=== PATIENT | female | born 1995 | race Caucasian/White ===

== ENCOUNTER 2016-11-15 16:38 | Emergency (ER) | payer OTHER ==
[~2016-11-15] VITALS: Ht 172.7 cm; Wt 66.7 kg
[~2016-11-15 16:38] MED LIST: AUGMENTIN 875 M1 TAB PO; BACTRIM DS 8001 TAB PO; BACTRIM DS TAB1 EACH PO; BENADRYL ALLERG25 M2 PO; CIPRO 500MG TA500 MG PO; DIFLUCAN150 MG PO; IBU-6600 MG PO; IBU600 MG PO; IBUPROFEN800 M1 PO; KETOROLAC TROME10 M1 PO; MEDROL4 M2 PO; METHYLPHENIDATE54 M1 PO; MICROGESTIN FE1 TAB PO; PERCOCET 325 MG1 TA2 PO; PREDNISONE20 M1 PO; PYRIDIUM100 MG PO; TYLENOL WITH C1 EACH PO; VICODIN5-300 PO; ZOFRAN ODT4 M1 PO; ZOFRAN ODT4 MG PO; ZOFRAN4 M2 PO
--- NOTE | 2016-11-15 17:56 | ED GI/GU/ABDOMINAL COMPLAINT ---
History of Present Illness General Chief Complaint: Abdominal Pain/Flank Pain Stated Complaint: ABD AND BACK PAIN Source: patient Exam Limitations: no limitations Vital Signs & Intake/Output Vital Signs & Intake/Output Vital Signs Date Time Temp Pulse Resp B/P Pulse O2 O2 Flow FiO2 Ox Delivery Rate 11/16 2011 98.1 66 16 115/61 99 Room Air Room Air 11/15 1834 77 18 102/57 98 Room Air 11/15 1652 97.8 98 18 136/94 99 Room Air Allergies Coded Allergies: NO KNOWN ALLERGIES (05/05/15) Reconcile Medications Metronidazole (Flagyl) 500 MG TABLET 1 TAB PO BID vaginal infection Tramadol HCl 50 MG TABLET 1-2 TAB PO Q6P PRN pain Triage Note: PT COMPLAINS OF FLANK PAIN AND ABD PAIN FOR 10 DAYS. DID URINE DIP STICK THAT WAS NEGATIVE BUT CULTURE CAME BACK GROUP B STREP BUT NOT HIGH ENOUGH TO TREAT. Triage Nurses Notes Reviewed? yes ? n Is pt currently ? No Onset: Abrupt Timing: recent history Quality/Severity: moderate, sharpness, severe Location: low back pain, low abd pain Radiation: no radiation Activities at Onset: none No Modifying Factors: none HPI: 21-year-old female comes into emergency room with complaints of lower abdominal pain has been going on for the past 2 weeks. She also reports some associated low back pain and vaginal discharge. She's reports some increased frequency with urination and some itching. She had a urine culture which grew out some group A strep. Denies any vomiting. Denies any fever or chills. Denies any changes in bowel movement. Nothing seems to make the symptoms better or worse. (GIGI ANDINO) Past History Travel History Traveled to [place] past 21 day No Medical History Any Pertinent Medical History? 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 No (GIGI ANDINO) Review of Systems Review of Systems Constitutional: Reports: no symptoms. EENTM: Reports: no symptoms. Respiratory: Reports: no symptoms. Cardiovascular: Reports: no symptoms. GI: Reports: see HPI. Genitourinary: Reports: see HPI. Musculoskeletal: Reports: see HPI. Skin: Reports: no symptoms. Neurological/Psychological: Reports: no symptoms. Hematologic/Endocrine: Reports: no symptoms. Immunologic/Allergic: Reports: no symptoms. All Other Systems: Reviewed and Negative (GIGI ANDINO) Physical Exam Physical Exam General Appearance: well developed/nourished, no apparent distress, alert Head: atraumatic, normal appearance Eyes: Bilateral: normal appearance. Ears, Nose, Throat, Mouth: hearing grossly normal, moist mucous membrane Neck: normal inspection Respiratory: normal breath sounds, no respiratory distress Cardiovascular: regular rate/rhythm Gastrointestinal: soft, non-tender Pelvic: cervicitis, discharge Back: normal inspection Extremities: normal range of motion Neurologic/Psych: awake, alert, oriented x 3, normal gait, normal mood/affect Skin: intact, normal color Core Measures ACS in differential dx? No Severe Sepsis Present: No Septic Shock Present: No (GIGI ANDINO) Progress Differential Diagnosis: appendicitis, biliary colic, bowel obstruction, cholecystitis, diverticulitis, ectopic , gastritis, hepatitis, ischemic bowel, inflamm bowel dis, ovarian cyst, ovarian torsion, pancreatitis, PID/ cervicitis, peptic ulcer, PUD/GERD, perforated viscous, SBO, threatened AB, UTI/ pyelo Plan of Care: Orders Procedure Date/time Status TRICHOMONAS 11/15 1934 Complete POTASSIUM HYDROXIDE (DANIELLE) 11/15 1934 Complete GENITAL CULTURE 11/15 1934 Active CHLAMYDIA-GC DNA PROBE 11/15 1934 Active LIPASE 11/15 1754 Complete COMPREHENSIVE METABOLIC PANEL 11/15 175 Complete CBC WITHOUT DIFFERENTIAL 11/15 175 Complete URINE 11/15 164 Complete URINALYSIS 11/15 1648 Complete Laboratory Tests 11/15/16 1825: Anion Gap 12, Estimated GFR > 60, BUN/Creatinine Ratio 11.7, Glucose 88, Calcium 9.7, Total Bilirubin 0.4, AST 16, ALT 33, Alkaline Phosphatase 72, Total Protein 6.8, Albumin 4.3, Globulin 2.5, Albumin/Globulin Ratio 1.7, Lipase 125, CBC w Diff NO MAN DIFF REQ, RBC 4.30, MCV 92.4, MCH 31.1 H, RDW 12.4, MPV 7.6, Gran % 52.9, Lymphocytes % 37.3, Monocytes % 8.4, Eosinophils % 0.9, Basophils % 0.5, Absolute Granulocytes 3.1, Absolute Lymphocytes 2.2, Absolute Monocytes 0.5, Absolute Eosinophils 0.1, Absolute Basophils 0, PUBS MCHC 33.7 11/15/16 1656: Urine Color STRAW, Urine Clarity CLEAR, Urine pH 6.0, Ur Specific [place] <= 1.005, Urine Protein NEG, Urine Ketones NEG, Urine Nitrite NEG, Urine Bilirubin NEG, Urine Urobilinogen 0.2, Ur Leukocyte Esterase NEG, Ur Microscopic EXAM NOT REQUIRED, Urine Hemoglobin NEG, Urine Glucose NEG, Urine Test NEGATIVE Microbiology 11/15 1937 GENITAL: GC DNA Probe - RECD 11/15 1937 GENITAL: Chlamydia DNA Probe (APOLLO) - RECD 11/15 1937 GENITAL: DANIELLE Preparation - COMP 11/15 1937 GENITAL: Trichomonas Preparation - COMP 11/15 1937 GENITAL: Genital Culture - RECD Initial ED EKG: none Comments: 11/15/2016 10:45:21 PM Patient clinically looks well. Nontoxic-appearing. In no apparent distress. No right lower quadrant pain. Negative McBurney sign. No suspicion for appendicitis. Discussed early possibility appendicitis with patient and family. Patient will return if she has any worsening symptoms. Patient's symptoms are likely related to cervicitis. She clinically looks well. Normal white count. Afebrile. She does not appear to be any type of distress upon discharge. 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 Treated prophylactically. Patient's urine culture from the other day only hernandez 40,000 colonies which is not typically treated. (GUADALUPE BOLAND,GIGI) Departure Departure Disposition: HOME OR SELF CARE Condition: Stable Clinical Impression Primary Impression: Cervicitis Secondary Impressions: Abdominal pain Referrals: BIANCA MORRIS,KERVIN (PCP/Family) Additional Instructions: TAKE fLAGYL PRESCRIBED. Take tramadol as prescribed. FOLLOW-UP WITH YOUR ob /manager analytical DOCTOR. rETURN IF ANY CONCERNS WORSENING SYMPTOMS. cALL [phone] AND AFTER dR. Grace FOR RESULTS OF CULTURES. Please go over all results of today's visit with your primary care doctor. Contact your primary care doctor to let them know you were here in the emergency room. There may be nonspecific findings which may not be related to your visit today here in the emergency room but may require further evaluation and chronic monitoring by your primary care doctor. If you had a laceration today the chance of foreign body always remains. You should follow-up with your primary care doctor for recheck in 3-5 days for a wound check. If you had an x-ray done there is a chance that a fracture could have been missed on initial read and you should follow-up with your primary care doctor for repeat x-rays if symptoms persist. If your blood pressure was elevated here in the emergency room please have rechecked by her primary care doctor within the next 48 hours by your primary care doctor. If you were prescribed a narcotic here in the emergency room or any type of controlled substances you're not allowed to drive while taking this medication or operate any type of heavy machinery. Narcotics can make you feel lightheaded dizziness nausea and can cause constipation. You may need to rock picker a stool softener. Thank you for choosing [facility] emergency room. Please return to the emergency room immediately if you have any other concerns worsening of symptoms. Departure Forms: Customer Survey General Discharge Information Prescriptions: Current Visit Scripts Tramadol HCl 1-2 TAB PO Q6P PRN pain #20 TAB Metronidazole (Flagyl) 1 TAB PO BID #14 TAB (GIGI ANDINO) PA/PACK CHANGER Co-Sign Statement Statement: ED Attending supervision documentation- [] I saw and evaluated the patient. I have also reviewed all the pertinent lab results and diagnostic results. I agree with the findings and the plan of care as documented in the PA's/PACK CHANGER's documentation. [X] I have reviewed the ED Record and agree with the PA's/PACK CHANGER's documentation. [] Additions or exceptions (if any) to the PAs/PACK CHANGER's note and plan are summarized below: [] (SCOTT MORRIS,MICHELLE Cote)
[2016-11-15 19:05] LABS: ABSOLUTE BASOPHIL COUNT 0 /CUMM (0.0-0.2); ABSOLUTE EOSINOPHIL COUNT 0.1 /CUMM (0.0-0.7); ABSOLUTE GRANULOCYTE CT 3.1 /CUMM (1.4-6.5); ABSOLUTE LYMPH COUNT 2.2 /CUMM (1.2-3.4); ABSOLUTE MONOCYTE COUNT 0.5 /CUMM (0.10-0.60); BASOPHIL % 0.5 % (0.0-2.0); EOSINOPHIL % 0.9 % (0-5); GRANULOCYTE % 52.9 % (42.2-75.2); HEMATOCRIT 39.8 % (37-47); MEAN CORPUSCULAR HGB 31.1 PG (27.0-31.0); MEAN CORPUSCULAR HGB CONC 33.7 G/DL (33.0-37.0); MEAN CORPUSCULAR VOLUME 92.4 FL (81.0-99.0); MEAN PLATELET VOLUME 7.6 FL (7.4-10.4); PLATELET COUNT 231 /CUMM (130-400); RBC DISTRIBUTION WIDTH 12.4 % (11.5-14.5); WHITE BLOOD CELL COUNT 5.9 /CUMM (4.8-10.8)
[2016-11-15] MEDS ORDERED: TRAMADOL HCL50 M1 PO (20:02)
[2016-11-15] MEDS ORDERED: FLAGYL500 MG PO (20:02)
[2016-11-15 20:12] VITALS: BP 115/61
== END 2016-11-15 20:25 ==
LOC: ERH 16:38
PROVIDERS: Physician Assistant Medical
DX: N72 Inflammatory disease of cervix uteri (principal)
CPT/HCPCS: 87070; 81003; 81025; 87491; 87591; 96372; J0456; J0696

== ENCOUNTER → 2017-01-04 | Day surgery (SDC) | payer OTHER ==
--- NOTE | 2017-01-01 15:06 | History & Physical Pre-Op ---
General Information and HPI History of Present Illness: Nelly is a 21-year-old female with a long-standing and worsening complaint of a painful hammertoe second digit right foot. The patient has undergone an extended course of conservative care, including shoe gear and activity modification, rest, immobilization and courses of NSAIDs. None of this is yielded her any significant relief. The patient presents today for preoperative surgical consultation. 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 Heart sounds rate and rhythm regular. Lower extremity physical exam demonstrates intact pedal pulses bilaterally. Both dorsalis pedis and posterior tibial arteries are palpable bilaterally. Patient without any sensory motor deficits. Deep tendon reflexes grossly intact. Patient noted to have significant pain with palpation range of motion through the proximal interphalangeal joint of the right second digit. Assessment/Plan Assessment/Plan: Painful hammertoe second digit right foot. A lengthy discussion reviewing both surgical and conservative options was held the patient at bedside and the patient elects to go forward with surgery despite the risks. As Ranked By This Provider Problem List: 1. Other hammer toe(s) (acquired), right foot Attending MD Review Statement Attending Statement Attending MD Statement: examined this patient
[~2017-01-04] VITALS: Ht 172.7 cm; Wt 66.7 kg
[~2017-01-04] MED LIST changes: +FLAGYL500 MG PO; +TRAMADOL HCL50 M1 PO
--- NOTE | 2017-01-04 08:39 | Operative Report ---
Operative/Inv Procedure Report Surgery Date: 01/04/17 Name of Procedure: 1 second metatarsal osteotomy right foot 2 arthroplasty second toe right foot 3 intraoperative administration of ankle block anesthesia Pre-Operative Diagnosis: 1 second metatarsal equinus right foot 2 hammertoe second toe right foot Post-Operative Diagnosis: The same Estimated Blood Loss: scant Surgeon/Earth Science Technician: JAQUELINE CARTAGENA DPM, DPM Anesthesia: moderate sedation, block Operative/Procedure Note Note: After obtaining informed consent the patient was brought to the operating room and placed on the operating table in the supine position. The patient was then securely fastened to the operating table utilizing safety belt. After administration of IV sedation, 10 mL of 0.5% Marcaine plain was infiltrated about the patient's right ankle. A well-padded ankle tourniquet was placed about the patient's right lower extremity. 2 g of Ancef were delivered intravenously times one dose. The right foot and ankle then scrubbed prepped and draped in usual aseptic manner. The right lower extremity was elevated to exsanguinate the limb, at which point the ankle tourniquet was inflated 250 mmHg. Attention directed dorsal aspect the right foot, where a 4 cm linear incision was made overlying the distal second metatarsal. The skin was sized 15 blade and deepened subtenons tissues. All vital neurovascular structures were identified protected. The dissection was carried down to the periosteum was was incised reflected. A V-type osteotomy was then performed at the surgical neck of the second metatarsal. The distal osseous segment was transposed dorsally and impacted upon the metatarsal shelf. The capture structures were reapproximated 4-0 Vicryl and the subcutaneous tissues reapproximated 4-0 Vicryl. The skin edges were then approximated with 4-0 nylon. Attention was then directed to the second digit, where 2 transversely oriented semielliptical incisions centered over the proximal phalangeal joint were incised with 15 blade. The ellipse of skin was freed and passed from the operative field. A transverse tenotomy was performed exposing the head of the proximal phalanx. This was then removed a sagittal bone saw. The extensor tendon was reapproximated 4-0 Vicryl and the skin edges reapproximated 4-0 nylon. The incisions were dressed with Xeroform 4 x 4's Kerlix and an Shon wrap. The patient was noted tolerate both procedure and anesthesia well and the patient was transported from the operating room to recovery with vital signs stable best assess intact all digits right foot.
== END ==
LOC: STS 04:59
DX: M20.41 Other hammer toe(s) (acquired), right foot (principal); M21.6X1 Other acquired deformities of right foot
CPT/HCPCS: 81025; 88304; 88305; J0690; J2001; J2250; J2405

== ENCOUNTER 2017-09-09 08:09 | Observation (INO) | payer OTHER ==
[~2017-09-09] VITALS: Ht 172.7 cm; Wt 63.5 kg
[~2017-09-09 08:09] MED LIST changes: +ZOFRAN ODT4 M1 SL
--- NOTE | 2017-09-09 08:59 | ED DYSPNEA/ASTHMA COMPLAINT ---
See Addendum History of Present Illness General Chief Complaint: Upper Respiratory Sx/Fever Stated Complaint: COUGH CHES TIGHTNESS ? FEVER Source: patient Exam Limitations: no limitations Vital Signs & Intake/Output Vital Signs & Intake/Output Vital Signs Date Time Temp Pulse Resp B/P B/P Pulse O2 O2 Flow FiO2 Mean Ox Delivery Rate 09/09 1640 98.8 127 18 118/59 100 Room Air 09/09 1454 98.8 114 18 130/68 99 Room Air 09/09 1342 121 18 100 Room Air 09/09 1307 98 Room Air 09/09 1244 99.8 118 18 134/61 99 Room Air 09/09 1200 105 18 98 Room Air 09/09 1129 121 20 98 Room Air 09/09 1051 100 09/09 1044 98.3 128 18 133/59 98 09/09 0937 96.1 09/09 0858 100 Room Air 09/09 0856 96.1 09/09 0815 96.1 120 18 120/69 100 Allergies Coded Allergies: latex (SWELLING 12/31/16) Uncoded Allergies: metal (hot and itchy 12/31/16) Triage Note: PT STATES SHE WAS UP ALL NIGHT BECAUSE SHE COULDN'T BREATH WHEN SHE LAYS FLAT. PT HAS DRY COUGH. PT NOT SURE IF SHE WAS RUNNING A FEVER. Triage Nurses Notes Reviewed? yes Onset: Abrupt Duration: day(s): (2), changing over time, continues in ED Timing: single episode today Severity: mild, moderate Activities at Onset: LAYING DOWN Prior Episodes/Possible Cause: no prior episodes Modifying Factors: Worsens With: other (LAYING DOWN ). Associated Symptoms: cough, CHEST TIGHTNESS, SOB LMP (ages 10-50): unknown : No Patient currently breastfeeds: No HPI: 22-year-old female with no past medical history is evaluation of chest tightness , shortness of breath, and coughing for the past 2 days. Patient states the symptoms have gradually gotten worse. She states that she was up all night last night because of the cough. The cough is dry. She states that symptoms get worse when she lays flat and improved when she sits up. She denies any chest pain but does report chest tightness. No hemoptysis lower extremity edema, fever, recent surgery, recent trauma. No significant family history of heart disease. She does not smoke or use any drugs. She does note that about a year ago she had an echocardiogram done to evaluate lower extremity edema. This turned out to be negative. She's never seen a lockstitch shoulder joiner. Mom does report a family history of tachycardia. Patient does not have a previous history of tachycardia herself. She denies any palpitations dizziness or lightheadedness. (Jericho Villanueva) Reconcile Medications Albuterol Sulfate (Proair Hfa) 90 MCG HFA.AER.AD 2 PUF INH Q4-6 PRN PRN SOB/ COUGH Codeine Phosphate/Guaifenesi (Cheratussin AC Syrup) 10 MG-100 MG/5 ML LIQUID 10 ML PO Q6H PRN COUGH Gabapentin 100 MG CAPSULE 1 CAP PO TID FIBROMYALGIA (Reported) Methocarbamol (Robaxin-750) 750 MG TABLET 1 TAB PO Q4H PRN MUSCLE RELAXER ( Reported) (Paulie Garay DO) Past History Travel History Traveled to [place] past 21 day No Medical History Any Pertinent Medical History? 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 No (Jericho Villanueva) Review of Systems Review of Systems Constitutional: Reports: no symptoms. EENTM: Reports: no symptoms. Respiratory: Reports: see HPI, cough, short of breath. Cardiovascular: Reports: see HPI (CHEST TIGHTNESS ). GI: Reports: no symptoms. Genitourinary: Reports: no symptoms. Musculoskeletal: Reports: no symptoms. Skin: Reports: no symptoms. Neurological/Psychological: Reports: no symptoms. Hematologic/Endocrine: Reports: no symptoms. Immunologic/Allergic: Reports: no symptoms. All Other Systems: Reviewed and Negative (Jericho Villanueva) Physical Exam Physical Exam General Appearance: well developed/nourished, no apparent distress, alert, awake Head: atraumatic, normal appearance Eyes: Bilateral: normal appearance, PERRL, EOMI. Ears, Nose, Throat: normal pharynx, normal ENT inspection, hearing grossly normal Neck: normal inspection, supple, full range of motion Respiratory: normal breath sounds, chest non-tender, no respiratory distress, lungs clear Cardiovascular: normal peripheral pulses, tachycardia (122 BPM) Peripheral Pulses: 2+ radial (R), 2+ radial (L) Gastrointestinal: soft, non-tender Extremities: normal inspection, normal range of motion, no edema Neurologic/Psych: no motor/sensory deficits, awake, alert, oriented x 3, normal gait, normal mood/affect Skin: intact, normal color, warm/dry Lymphatic: no anterior cervical nivia Core Measures ACS in differential dx? No CVA/TIA Diagnosis No Sepsis Present: No Sepsis Focused Exam Completed? No (Rubio BOLAND,Jericho) Progress Differential Diagnosis: asthma, bronchitis, CHF, COPD, pulmonary embolism, pneumonia, pneumothorax, SINUS TACHYCARDIA,ARRHYTHMIA, DRUG-INDUCED TACHYCARDIA, VALVULAR DISEASE Plan of Care: Orders Procedure Date/time Status Heart Healthy Diet 09/10 B Active ED Holding Orders 09/[address] in observation 09/09 174 Active ED Holding Orders 09/09 1742 Active Vital Signs 09/09 1742 Active Code Status 09/09 1742 Active Patient Data 09/09 1735 Active Add-on Test (ER Only) 09/09 1340 Active RAPID VIRAL INFLUENZA A 09/09 1023 Complete URINE DRUGS OF ABUSE 09/09 1000 Complete URINALYSIS 09/09 0741 Complete TSH REFLEX 09/09 0741 Complete TROPONIN LEVEL 09/09 0741 Complete MAGNESIUM 09/09 0741 Complete HUMAN BETA HCG SCREEN 09/09 0741 Complete D-DIMER 09/09 0741 Complete COMPREHENSIVE METABOLIC PANEL 09/09 0741 Complete CBC WITHOUT DIFFERENTIAL 09/09 840 Complete EKG 09/09 0741 Active Laboratory Tests 09/09/17 1000: Urine Opiates Screen < 100.00, Methadone Screen < 40, Barbiturate Screen < 60, Ur Phencyclidine Scrn < 6.00, Amphetamines Screen < 100, U Benzodiazepines Scrn < 85, Urine Cocaine Screen < 50, Urine Cannabis Screen < 5.00, Urine Color STRAW , Urine Clarity CLEAR, Urine pH 6.0, Ur Specific [place] <= 1.005, Urine Protein NEG, Urine Ketones NEG, Urine Nitrite NEG, Urine Bilirubin NEG, Urine Urobilinogen 0.2, Ur Leukocyte Esterase NEG, Ur Microscopic EXAM NOT REQUIRED, Urine Hemoglobin NEG, Urine Glucose NEG 09/09/17 0851: Anion Gap 14, Estimated GFR > 60, BUN/Creatinine Ratio 18.0, Glucose 91, Calcium 9.7, Magnesium 1.8, Total Bilirubin 0.9, AST 21, ALT 25, Alkaline Phosphatase 73 , Troponin I < 0.01, Total Protein 7.3, Albumin 4.8, Globulin 2.5, Albumin/ Globulin Ratio 1.9, TSH &T3 &Free T4 Intrp 2.390, Total Beta HCG NEGATIVE, D- Dimer High Sensitivty < 200, CBC w Diff NO MAN DIFF REQ, RBC 4.64, MCV 90.8, MCH 31.4 H, MCHC 34.5, RDW 11.9, MPV 7.2 L, Gran % 85.6 H, Lymphocytes % 12.0 L, Monocytes % 2.1, Eosinophils % 0.3, Basophils % 0, Absolute Granulocytes 6.5, Absolute Lymphocytes 0.9 L, Absolute Monocytes 0.2, Absolute Eosinophils 0, Absolute Basophils 0 Microbiology 09/09 1035 NASOPHARYN: Influenza Virus A & B Rapid Smear - COMP 09/09 820 NASOPHARYN: Influenza Virus A & B Rapid Smear - CAN Cancelled: Cancelled via OE: Per MD Decision Patient seen and evaluated. Her lungs are clear to auscultation. Bloodwork is within normal limits including a negative d-dimer negative troponin. TSH within normal limits. Chest x-ray is clear. Patient has been here for 8 hours now. She has had a persistent tachycardia from the 120s to 130s. Her drug screen is negative. Patient was medicated with IV Ativan 3 L of normal saline Robitussin- AC Toradol and Tylenol. She denies any pain currently. The etiology of her tachycardia at this point is unclear. Spoke with Dr. Vega from cardiology he recommends admitting the patient for observation for further evaluation of tachycardia. She'll have cardiology consult, serial labs, echocardiogram monitoring of vital signs telemetry monitoring. Case discussed with Dr. Garay he agrees. Diagnostic Imaging: Viewed by Me: Radiology Read. Discussed w/RAD: Radiology Read. CXR Impression: PATIENT: SONAL BHATIA PRESENT AGE: 22 PATIENT ACCOUNT NO: [id number] : 96 LOCATION: [facility] ORDERING PHYSICIAN: Jericho BOLAND SERVICE DATE: 09/09/17 EXAM TYPE: RAD - XRY- CHEST XRAY, TWO VIEWS EXAMINATION: XR CHEST CLINICAL INFORMATION: Shortness of breath. COMPARISON: Chest x-ray most recent prior dated 05/24/2014 TECHNIQUE: 2 views of the chest were obtained. FINDINGS: Cardiomediastinal silhouette is within normal limits. Hyperinflated lungs may represent good inspiratory effort in this age group. Lungs are clear. Bony thorax is intact. IMPRESSION: No acute pulmonary disease. DICTATED BY: Nicole Salguero MD DATE/TIME DICTATED:09/09/171013 RETINA SUBSPECIALIST:CAITIE DATE/TIME TRANSCRIBED:09/09/171013 CONFIDENTIAL, DO NOT COPY WITHOUT APPROPRIATE AUTHORIZATION. Initial ED EKG: SINUS TACH (Jericho Villanueva) Departure Departure Disposition: STILL A PATIENT Condition: Stable Referrals: Lili MORRIS,Carmen (PCP/Family) Additional Instructions: Rest and drink plenty of fluids. Use pro-air inhaler 2 puffs every 4-6 hours as needed for cough or shortness of breath. Cheratussin can be as needed for cough at nighttime. This may cause drowsiness. Tylenol ibuprofen as needed for pain or fevers. Make a follow-up appointment with her primary care doctor for this week. Monitor symptoms and return with any concerns. Departure Forms: Customer Survey General Discharge Information Prescriptions: Current Visit Scripts Albuterol Sulfate (Proair Hfa) 2 PUF INH Q4-6 PRN PRN SOB/COUGH #1 INHAL Codeine Phosphate/Guaifenesi (Cheratussin AC Syrup) 10 ML PO Q6H PRN COUGH #240 ML Admission Note Spoke With: Brigitte León MD Documentation of Exam: Documentation of any treatments & extenuating circumstances including Concerns Regarding Discharge (functional status, medication knowledge or non-compliance, living conditions, etc.) that warrant an admission rather than observation: [ Patient has had persistent tachycardia over 8 hours and she's been in the ER. She will require IV fluids, cardiology consult, serial labs, serial EKGs, echocardiogram, telemetry monitoring] (Jericho Villanueva) Departure Clinical Impression Primary Impression: EKG abnormalities Secondary Impressions: Chest pain, Tachycardia Observation Note Spoke With: Brigitte León MD Physician Advisor Notified: PAULIE GARAY DO Place Patient In: Non-ED OBS Care Area Rationale for Observation: My rational for observation is as follows [the patient needs observation for persistent ongoing chest pain despite IV pain medication, she also has persistent tachycardia as high has 135 without resolution from IV fluids, pain control, Ativan, and Tylenol]. (Narendra BARRON,Paulie Dockery) Critical Care Note Critical Care Note Critical Care Time: non-applicable (Rubio BOLAND,Jericho)
[2017-09-09 09:00] LABS: ABSOLUTE BASOPHIL COUNT 0 /CUMM (0.0-0.2); ABSOLUTE EOSINOPHIL COUNT 0 /CUMM (0.0-0.7); ABSOLUTE GRANULOCYTE CT 6.5 /CUMM (1.4-6.5); ABSOLUTE LYMPH COUNT 0.9 /CUMM (1.2-3.4); ABSOLUTE MONOCYTE COUNT 0.2 /CUMM (0.10-0.60); BASOPHIL % 0 % (0.0-2.0); EOSINOPHIL % 0.3 % (0-5); HEMATOCRIT 42.1 % (37-47); MEAN CORPUSCULAR HGB 31.4 PG (27.0-31.0); MEAN CORPUSCULAR HGB CONC 34.5 G/DL (33.0-37.0); MEAN CORPUSCULAR VOLUME 90.8 FL (81.0-99.0); MEAN PLATELET VOLUME 7.2 FL (7.4-10.4); PLATELET COUNT 214 /CUMM (130-400); RBC DISTRIBUTION WIDTH 11.9 % (11.5-14.5); RED BLOOD CELL CT 4.64 /CUMM (4.20-5.40); WHITE BLOOD CELL COUNT 7.6 /CUMM (4.8-10.8)
[2017-09-09 09:02] LABS: GRANULOCYTE % 85.6 % (42.2-75.2)
--- NOTE | 2017-09-09 10:18 | RADIOLOGY REPORT ---
EXAMINATION: XR CHEST CLINICAL INFORMATION: Shortness of breath. COMPARISON: Chest x-ray most recent prior dated 05/24/2014 TECHNIQUE: 2 views of the chest were obtained. FINDINGS: Cardiomediastinal silhouette is within normal limits. Hyperinflated lungs may represent good inspiratory effort in this age group. Lungs are clear. Bony thorax is intact. IMPRESSION: No acute pulmonary disease.
[2017-09-09] MEDS ORDERED: CHERATUSSIN AC118 M1 PO (11:06)
[2017-09-09] MEDS ORDERED: PROAIR HFA8.5 GM INH (11:06)
[2017-09-09] MEDS ORDERED: GABAPENTIN100 M2 PO (16:58)
[2017-09-09] MEDS ORDERED: ROBAXIN-750750 M1 PO (16:59)
--- NOTE | 2017-09-09 17:36 | History & Physical ---
Miryam Beltran MD 09/09/17 9275: General Information and HPI MD Statement: I have seen and personally examined SONAL BHATIA and documented this H&P. The patient is a 22 year old F who presented with a patient stated chief complaint of [chest pressure]. Source of Information: patient, family Exam Limitations: no limitations History of Present Illness: This is a 22-year-old female with past medical history of fibromyalgia came to [place] [facility] with complaints of nonproductive cough and shortness of breath with chest pressure since last night. 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 Patient was in usual state of health until last night, suddenly developed severe chest pressure which increased while lying flat and relieved on sitting up and leaning forward. This chest pressure was associated with on and off cough without sputum production. According to the patient it is 6 x 10 chest pain with radiation to the back. No history of any nausea, vomiting, fever, chills, abdominal pain,abnormal vaginal discharge, dysuria, hematuria, altered bowel movements, loss of consciousness, trauma. Patient gives history of shortness of breath on exertion while working in the urgent care for the past 2 months. She denies shortness of breath at rest.patient has been seeing a cornice upholsterer at [facility] who diagnosed her with fibromyalgia and started on gabapentin. Patient during her teenage was evaluated for asthma and found to be negative. She says she has allergy to pollen and grass. Patient has been seen in [place] [facility] multiple times for urinary tract infection. Allergies/Medications Allergies: Coded Allergies: latex (SWELLING 12/31/16) Uncoded Allergies: metal (hot and itchy 12/31/16) Home Med list Albuterol Sulfate (Proair Hfa) 90 MCG HFA.AER.AD 2 PUF INH Q4-6 PRN PRN SOB/ COUGH Codeine Phosphate/Guaifenesi (Cheratussin AC Syrup) 10 MG-100 MG/5 ML LIQUID 10 ML PO Q6H PRN COUGH Gabapentin 100 MG CAPSULE 1 CAP PO TID FIBROMYALGIA (Reported) Methocarbamol (Robaxin-750) 750 MG TABLET 1 TAB PO Q4H PRN MUSCLE RELAXER ( Reported) Compliance With Home Meds: GOOD Past History Travel History Traveled to [place] past 21 day No Medical History Neurological: migraine EENT: NONE Cardiovascular: NONE Respiratory: NONE Gastrointestinal: NONE Hepatic: NONE Renal: RECURRENT UTI'S Musculoskeletal: NONE Psychiatric: ADD Endocrine: NONE Blood Disorders: NONE Cancer(s): NONE 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 Home Who Do You Live With? self Services at Home: None Primary Language: Emirati ETOH Use: denies use Illicit Drug Use: denies illicit drug use Functional Ability ADLs Independent: dressing, eating, toileting, bathing. Ambulation: independent IADLs Independent: shopping, housework, finances, food prep, telephone, transportation , medication admin. Review of Systems Review of Systems Constitutional: Reports: no symptoms. Cardiovascular: Reports: chest pain. Respiratory: Reports: cough, short of breath. GI: Reports: no symptoms. Genitourinary: Reports: no symptoms. Musculoskeletal: Reports: no symptoms. Skin: Reports: no symptoms. Neurological/Psychological: Reports: no symptoms. Exam & Diagnostic Data Last 24 Hrs of Vital Signs/I&O Vital Signs Date Time Temp Pulse Resp B/P B/P Pulse O2 O2 Flow FiO2 Mean Ox Delivery Rate 09/09 1750 99.9 130 18 118/58 100 Room Air 09/09 1640 98.8 127 18 118/59 100 Room Air 09/09 1454 98.8 114 18 130/68 99 Room Air 09/09 1342 121 18 100 Room Air 09/09 1307 98 Room Air 09/09 1244 99.8 118 18 134/61 99 Room Air 09/09 1200 105 18 98 Room Air 09/09 1129 121 20 98 Room Air 09/09 1051 100 09/09 1044 98.3 128 18 133/59 98 09/09 0937 96.1 09/09 0858 100 Room Air 09/09 0856 96.1 09/09 0815 96.1 120 18 120/69 100 Intake & Output 09/09 1600 09/09 0800 09/09 0000 Intake Total 1000 Output Total Balance 1000 Intake, IV 1000 Patient 140 lb Weight Weight Reported by Patient Measurement Method Physical Exam General Appearance Alert, Oriented X3, Cooperative, No Acute Distress Skin No Rashes Skin Temp/Moisture Exam: Warm/Dry HEENT Atraumatic, PERRLA, EOMI Neck No JVD, No thryomegaly, +2 Carotid Pulse wo Bruit Cardiovascular Normal S1, Normal S2, No Murmurs, tachycardia Lungs Clear to Auscultation, pain on lying flat and relieved on bending forward Abdomen Soft, No Tenderness, No Hepatospenomegaly Neurological Normal Speech, Strength at 5/5 X4 Ext, Normal Tone, Sensation Intact Extremities No Cyanosis, No Edema, Normal Pulses Last 24 Hrs of Labs/Daniel: Laboratory Tests 09/09/17 1925: Troponin I Pending 09/09/17 1000: Urine Opiates Screen < 100.00, Methadone Screen < 40, Barbiturate Screen < 60, Ur Phencyclidine Scrn < 6.00, Amphetamines Screen < 100, U Benzodiazepines Scrn < 85, Urine Cocaine Screen < 50, Urine Cannabis Screen < 5.00, Urine Color STRAW , Urine Clarity CLEAR, Urine pH 6.0, Ur Specific [place] <= 1.005, Urine Protein NEG, Urine Ketones NEG, Urine Nitrite NEG, Urine Bilirubin NEG, Urine Urobilinogen 0.2, Ur Leukocyte Esterase NEG, Ur Microscopic EXAM NOT REQUIRED, Urine Hemoglobin NEG, Urine Glucose NEG 09/09/17 0851: Anion Gap 14, Estimated GFR > 60, BUN/Creatinine Ratio 18.0, Glucose 91, Calcium 9.7, Magnesium 1.8, Total Bilirubin 0.9, AST 21, ALT 25, Alkaline Phosphatase 73 , Troponin I < 0.01, Total Protein 7.3, Albumin 4.8, Globulin 2.5, Albumin/ Globulin Ratio 1.9, TSH &T3 &Free T4 Intrp 2.390, Total Beta HCG NEGATIVE, D- Dimer High Sensitivty < 200, CBC w Diff NO MAN DIFF REQ, RBC 4.64, MCV 90.8, MCH 31.4 H, MCHC 34.5, RDW 11.9, MPV 7.2 L, Gran % 85.6 H, Lymphocytes % 12.0 L, Monocytes % 2.1, Eosinophils % 0.3, Basophils % 0, Absolute Granulocytes 6.5, Absolute Lymphocytes 0.9 L, Absolute Monocytes 0.2, Absolute Eosinophils 0, Absolute Basophils 0 Microbiology 09/09 1035 NASOPHARYN: Influenza Virus A & B Rapid Smear - COMP 09/09 08 NASOPHARYN: Influenza Virus A & B Rapid Smear - CAN Cancelled: Cancelled via OE: Per MD Decision Diagnostic Data EKG Results sinus tachy CXR Results IMPRESSION: No acute pulmonary disease. Assessment/Plan Assessment: This is a 22-year-old female with past medical history of fibromyalgia came to [place] [facility] with complaints of nonproductive cough and shortness of breath with chest pressure since last night,Is placed under observation in telemetry in view of sinus tachycardia. Patient needs further evaluation and management. ED treatment-3 L of normal saline, Ativan 1 mg IVonce, Robitussin, ketorolacwants, Tylenol IV, albuterol and ipratropium, Zofran once. Assessment and plan Sinus tachycardia * Given the patient's tachycardia differentials can be pleuritic/pericarditis/ pulmonary embolism/anxiety/hyperthyroidism. * serial troponins and EKG. First set of troponin negative. EKG shows sinus tachycardia. * We will rule out PE-we will take her CAT scan of the chest with PE protocol. Patient's d-dimer is 200 though PE is unlikely given the patient history. * TSH-2.3. We'll get a free T4. * patient was evaluated 2 years ago by her primary care physician for bilateral leg edema and had an echocardiogram done which was found to be normal. We will get an echocardiogram[to look for any RV strain] and cardiology consult in the a.m. * WE WILL GIVE rOZEREM FOR SLEEP. * wE WILL START HER ON TRAMADOL FOR PAIN cODE-FULL CODE dIET-HEART HEALTHY DIET As Ranked By This Provider Problem List: 1. Tachycardia Core Measures/Misc (04/17) Acute Coronary Syndrome ACS Diagnosis: No Congestive Heart Failure Congestive Heart Failure Diagnosis No Cerebrovascular Accident CVA/TIA Diagnosis: No VTE (View Protocol) VTE Risk Factors No risk factors No Mechanical VTE Prophylaxis d/t Other No VTE Pharm Prophylaxis d/t Other Sepsis (View protocol) Sepsis Present: No Sourav MORRIS,[facility] 09/10/17 0109: Resident Review Statement Resident Statement: examined this patient, discussed with photo intern, agreed with photo intern Other Findings: Assessment 22-year-old lady with no known cardiac history presents with an 1 day acute onset of constant retrosternal chest pressure which is positional (relieved by leaning forward) . Associated symptom of shortness of breath and nonproductive cough. No radiating features or diaphoresis. No shortness of breath is chronic for about 2 months and is exertional dependent. PE ruled out via CT, initial troponin and EKG unremarkable for any ischemic pathology. Chest x-ray, influenza test, and white count unremarkable. Denies Use of illicit drugs. Positive family history for CAD. Impression Chest pressure/ discomfort. Differentials include pericarditis versus pleurisy versus costochondritis. PE has been ruled out. The chest pressure is atypical and with negative troponins and unremarkable EKG ACS is very unlikely. Tachycardia. Sinus rhythm. Differentials can include pain, fevers, thyroid abnormalities History of chronic disease: Fibromyalgia Plan Place in telemetry observation for close cardiac monitoring Continue to trend troponin daily to completely rule out ACS Ibuprofen 800 mg 3 times a day Will obtain echocardiogram Will obtain TSH level Cardiology consult a.m. Tramadol for moderate pain Robitussin codeine for cough DVT prophylaxis; Lovenox CODE STATUS: Full code Laron MORRIS, [facility] 09/10/17 0346: Attending MD Review Statement Attending Statement Attending MD Statement: examined this patient, discuss w/resident/PA/PORTFOLIO MGR, agreed w/resident/PA/PORTFOLIO MGR, discussed with family, reviewed images, amended to note Attending Assessment/Plan: 22 yo F with h/o ?fibromyalgia (presumptive diagnosis), recurrent UTI's, is brought in for evaluation of dry cough, chest tighness and dyspnea/orthopnea that started the night prior to admission. Chest tightness and breathing is worse when she takes a deep breath (pleuritic) or when she lays down. It is relieved with sitting up or leaning forward. Reports exertional dyspnea for past 2 months. No history of thyroid problems. No fever/ pain. The only new medications are gabapentin and robaxin which she was prescribed for possible fibromyalgia. She denies palpitations or lightheadedness. 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 Mother works in administration at [employer]. She reports there is a family history of tachycardia. Vitals are stable except for persistent tachycardia (120-140's), Tmax 99.9. Exam is unremarkable. Labs unremarkable, troponin neg. Rapid flu neg. CXR: no acute disease. EKG: Sinus tachycardia, no acute changes, no ST elevations or RI depressions. Assessment and plan: 1. Sinus tachycardia of unclear etiology TSH reflex normal, no evidence of sepsis or infection, no evidence of pain/ anxiety, patient is not dehydrated or anemic. 2. Pleuritic chest tightness/ dyspnea of unclear etiology, rule out pericarditis. 3. Rule out ACS - 23 hour observation on Telemetry - Monitor for arrhythmias - Serial EKG and troponin - Obtain Echo - Empirically initiate Motrin TID for possible pericarditis - Cardio consult in AM - Check TSH with free T4 - If work up is essentially negative, would consider initiating beta fariba - Chest CTA was done which was negative for PE or acute lung findings. - NSAIDs for pain - Gentle hydration - Melatonin or rozarem to help insomnia DVT ppx Alps/ low risk, Full code. Observation Initial Note - I have personally examined SONAL BHATIA on 09/10/17 at 0346. The disposition of SONAL BHATIA is uncertain at this time and before a determination can be made, she requires a period of observation for the following reasons [Tachycardia, dyspnea, chest pressure]
[2017-09-09 20:00] VITALS: BP 118/66
--- NOTE | 2017-09-09 20:36 | CT SCAN REPORT ---
EXAMINATION: CT ANGIOGRAM OF THE CHEST WITH AND WITHOUT CONTRAST (CT PULMONARY ANGIOGRAM FOR PE) CLINICAL INFORMATION: Reason for Study:
Presumptive Dx: RULE OUT PE
Signs Symptoms: TACHYCARDIA, PLEURITIC PAIN
COMPARISON: None TECHNIQUE: Prior to contrast administration, noncontrast localization images were obtained. Subsequently, multidetector volumetric imaging was performed from the thoracic inlet to below the diaphragms following the administration of 67 mL Omnipaque 350 intravenous contrast. No contrast reaction reported. Sagittal, coronal, and MIP oblique sagittal reformatted images were obtained on the CT workstation, uploaded to PACS, and reviewed. FINDINGS: QUALITY OF STUDY/CONTRAST BOLUS: Satisfactory PULMONARY ARTERIES: No evidence of filling defects in the pulmonary arteries to suggest central or segmental pulmonary emboli. THORACIC AORTA: No aneurysm or dissection. LUNG: No focal consolidation, nodules or masses. PLEURA: No pleural effusion or pneumothorax. MEDIASTINUM: Normal heart size. No pericardial effusion. No hilar or mediastinal lymphadenopathy. No evidence of septal bowing or right heart strain. Soft tissue within the anterior mediastinum most compatible with thymic tissue. CHEST WALL/AXILLA: No axillary or internal mammary lymphadenopathy. OSSEOUS STRUCTURES: No acute or suspicious osseous abnormality. UPPER ABDOMEN: Unremarkable. No reflux of contrast into the hepatic veins to suggest elevated right heart pressures. IMPRESSION: 1. No evidence of central or segmental pulmonary embolus. 2. No acute findings in lung olivares. VTE: negative
[2017-09-09 23:32] VITALS: BP 118/64
[2017-09-10 07:04] VITALS: BP 112/64
--- NOTE | 2017-09-10 08:56 | PN-Observation ---
Observation Note Observation Note _ I have personally examined SONAL BHATIA. her disposition is uncertain at this time. Before a determination can be made, she requires continued observation for the following reasons chest pressure. Assessment/Plan Assessment: 22-year-old lady with no known cardiac history presents with an 1 day acute onset of constant retrosternal chest pressure which is positional (relieved by leaning forward) . Associated symptom of shortness of breath and nonproductive cough. No radiating features or diaphoresis. shortness of breath is chronic for about 2 months and is exertional dependent. PE ruled out via CT, initial troponin and EKG unremarkable for any ischemic pathology. Chest x-ray, influenza test, and white count unremarkable. Denies Use of illicit drugs. Positive family history for CAD. Impression Chest pressure/ discomfort. Differentials include pericarditis versus pleurisy versus costochondritis. PE has been ruled out. The chest pressure is atypical and with negative troponins and unremarkable EKG ACS is very unlikely. Patient seem to have improve with motrin therapy. Tachycardia. Sinus rhythm. Differentials can include pain, fevers, thyroid abnormalities History of chronic disease: Fibromyalgia Plan Continue telemetry observation for close cardiac monitoring trend troponin unremarkable Ibuprofen 800 mg 3 times a day f/u on echocardiogram TSH level normal Cardiology consult a.m. Tramadol for moderate pain Robitussin codeine for cough DVT prophylaxis; Lovenox CODE STATUS: Full code Problem List: 1. Chest pain Subjective Follow-up For: Chest pressure/ pain Tachycardia Subjective: Seen and examined at bedside. Reports interval improvement in chest pressure and pain. Currently does not endorse any worsening chest pressure, palpitation, or shortness of breath. Telemetry event shows episodes of tachycardia when patient was walking to the bathroom. Review of Systems Constitutional: Reports: see HPI. Comments: Skin No Rashes Skin Temp/Moisture Exam: Warm/Dry HEENT Atraumatic, PERRLA, EOMI Neck No JVD, No thryomegaly, +2 Carotid Pulse wo Bruit Cardiovascular Normal S1, Normal S2, No Murmurs, tachycardia Lungs Clear to Auscultation, pain on lying flat and relieved on bending forward Abdomen Soft, No Tenderness, No Hepatospenomegaly Neurological Normal Speech, Strength at 5/5 X4 Ext, Normal Tone, Sensation Intact Extremities No Cyanosis, No Edema, Normal Pulses Objective Last 24 Hrs of Vital Signs/I&O Vital Signs Date Time Temp Pulse Resp B/P B/P Pulse O2 O2 Flow FiO2 Mean Ox Delivery Rate 09/10 0838 98 Room Air 09/10 0704 98.9 82 18 112/64 97 Room Air 09/10 0000 98 Room Air 09/09 2332 98.5 138 16 118/64 99 Room Air 09/09 2050 98 Room Air Room Air 09/09 2038 Room Air Room Air 09/09 2000 98.4 145 18 118/66 98 Room Air 09/09 1750 99.9 130 18 118/58 100 Room Air 09/09 1640 98.8 127 18 118/59 100 Room Air 09/09 1454 98.8 114 18 130/68 99 Room Air 09/09 1342 121 18 100 Room Air 09/09 1307 98 Room Air 09/09 1244 99.8 118 18 134/61 99 Room Air 09/09 1200 105 18 98 Room Air 09/09 1129 121 20 98 Room Air 09/09 1051 100 09/09 1044 98.3 128 18 133/59 98 Intake & Output 09/10 1600 09/10 0800 09/10 0000 Intake Total 900 2450 Output Total Balance 900 2450 Intake, IV 600 2150 Intake, Oral 300 300 Patient 63.503 kg Weight Physical Exam General Appearance: Alert, Oriented X3, Cooperative Other Physical Findings: Skin No Rashes Skin Temp/Moisture Exam: Warm/Dry HEENT Atraumatic, PERRLA, EOMI Neck No JVD, No thryomegaly, +2 Carotid Pulse wo Bruit Cardiovascular Normal S1, Normal S2, No Murmurs, tachycardia Lungs Clear to Auscultation, pain on lying flat and relieved on bending forward Abdomen Soft, No Tenderness, No Hepatospenomegaly Neurological Normal Speech, Strength at 5/5 X4 Ext, Normal Tone, Sensation Intact Extremities No Cyanosis, No Edema, Normal Pulses Current Medications: Current Medications Sig/Darren Start time Last Medication Dose Route Stop Time Status Admin Albuterol Sulfate 3 ML BID 09/09 2199 AC 09/10 INH 0836 Enoxaparin Sodium 40 MG DAILY 09/10 1000 AC 09/10 SC 0920 Gabapentin 100 MG TID 09/09 2199 AC 09/10 PO 0920 Guaifenesin/Codeine 10 ML Q6H PRN 09/09 1944 AC 09/10 [place] 0651 Guaifenesin/Codeine 10 ML ONCE ONE 09/09 1500 DC 09/09 Phosphate PO 09/09 1501 1454 Ibuprofen 800 MG TID 09/09 2309 AC 09/10 PO 0920 Ketorolac 0 .STK-MED ONE 09/09 1251 DC Tromethamine .ROUTE Ketorolac 30 MG ONCE ONE 09/09 1245 DC 09/09 Tromethamine IV 09/09 1246 1250 Lorazepam 0 .STK-MED ONE 09/09 1354 DC .ROUTE Lorazepam 1 MG ONCE ONE 09/09 1345 DC 09/09 IV 09/09 1346 1352 Methocarbamol 750 MG TID PRN 09/09 2000 AC PO Ondansetron HCl 0 .STK-MED ONE 09/09 1747 DC .ROUTE Ondansetron HCl 4 MG ONCE ONE 09/09 1745 DC 09/09 IV 09/09 1746 1745 Ramelteon 8 MG ONCE ONE 09/09 1930 DC 09/09 PO 09/09 1931 2250 Sodium Chloride 1,000 ML Q13H 09/09 1930 DC 09/09 IV 09/10 0829 2115 Sodium Chloride 1,000 ML BOLUS ONE 09/09 1545 DC 09/09 IV 09/09 1644 1641 Sodium Chloride 1,000 ML BOLUS ONE 09/09 1245 DC 09/09 IV 09/09 1344 1250 Sodium Chloride 1,000 ML BOLUS ONE 09/09 1115 DC 09/09 IV 09/09 1214 1114 Tramadol HCl 50 MG Q6 PRN 09/09 1930 AC 09/09 PO 2045 Last 24 Hrs of Labs/Mics: Laboratory Tests 09/10/17 0645: Anion Gap 10, Estimated GFR > 60, BUN/Creatinine Ratio 10.0 09/09/17 192: Troponin I < 0.01
[2017-09-10 15:28] VITALS: BP 112/56
--- NOTE | 2017-09-10 16:04 | Cons- Cardiology ---
General Information and HPI History of Present Illness: Ms. Nelly Oneal is a 22-year-old female with a history of fibromyalgia and a very strong family history for coronary artery disease ( maternal grandmother succumbed to a myocardial infarction following the stroke at age 37 years) who presented to the ED with complaints of nonproductive cough, shortness of breath, and intermittent chest discomfort that began on (09/08/2017) evening and kept her up all night. The discomfort is exacerbated by coughing and certain positions and improved with others. It is nonexertional and has never been present previously. She does have intermittent aches and pains in her muscles and joints. 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 Home Who Do You Live With? self Services at Home: None Primary Language: Czech Smoking Status: Never Smoked ETOH Use: denies use Illicit Drug Use: denies illicit drug use Functional Ability ADLs Independent: dressing, eating, toileting, bathing. Ambulation: independent IADLs Independent: shopping, housework, finances, food prep, telephone, transportation , medication admin. Exam & Diagnostic Data Vital Signs and I&O Vital Signs Date Time Temp Pulse Resp B/P B/P Pulse O2 O2 Flow FiO2 Mean Ox Delivery Rate 09/10 1528 98.7 88 16 112/56 97 Room Air 09/10 0838 98 Room Air 09/10 0704 98.9 82 18 112/64 97 Room Air 09/10 0000 98 Room Air 09/09 2332 98.5 138 16 118/64 99 Room Air 09/09 2050 98 Room Air Room Air 09/09 2038 Room Air Room Air 09/09 2000 98.4 145 18 118/66 98 Room Air 09/09 1750 99.9 130 18 118/58 100 Room Air 09/09 1640 98.8 127 18 118/59 100 Room Air Intake & Output 09/10 1600 09/10 0800 09/10 0000 09/09 1600 09/09 0800 09/09 0000 Intake Total 900 2450 1000 Output Total Balance 900 2450 1000 Intake, IV 600 2150 1000 Intake, Oral 300 300 Patient 140 lb 140 lb Weight Weight Reported by Patient Measurement Method Physical Exam: Well-developed, well-nourished young adult female in no acute distress. Vital signs: See above. HEENT: Normocephalic, atraumatic, EOMI, slightly dry mucous membranes. Neck: No JVD, no bruits. Lungs: Clear to auscultation bilaterally. Heart: S1, S2 with no murmur, gallop, or rub appreciated. PMI fifth ICS at MCL. Extremities: No edema. Peripheral pulses: Symmetrical and intact. Labs/Daniel Results: Laboratory Tests 09/10 09/10 09/09 09/09 1240 0645 1925 1000 Chemistry Sodium (137 - 145 mmol/L) 138 Potassium (3.5 - 5.1 mmol/L) 3.8 Chloride (98 - 107 mmol/L) 107 Carbon Dioxide (22 - 30 mmol/L) 22 Anion Gap (5 - 16) 10 BUN (7 - 17 mg/dL) 5 L Creatinine (0.5 - 1.0 mg/dL) 0.5 Estimated GFR (>60 ml/min) > 60 BUN/Creatinine Ratio (7 - 25 %) 10.0 Troponin I (< 0.11 ng/ml) < 0.01 Hematology ESR Westergren (0 - 20 MM) 10 Toxicology Urine Opiates Screen (>2000 NG/ML) < 100.00 Methadone Screen (>300 NG/ML) < 40 Barbiturate Screen (>200 NG/ML) < 60 Ur Phencyclidine Scrn (>25 NG/ML) < 6.00 Amphetamines Screen (>1000 NG/ML) < 100 U Benzodiazepines Scrn (>200 NG/ML) < 85 Urine Cocaine Screen (>300 NG/ML) < 50 Urine Cannabis Screen (>50 NG/ML) < 5.00 Urines Urine Color (YEL,AMB,STR) STRAW Urine Clarity (CLEAR) CLEAR Urine pH (5.0 - 8.0) 6.0 Ur Specific [place] (1.001 - 1.035) <= 1.005 Urine Protein (NEG,<30 MG/DL) NEG Urine Ketones (NEG) NEG Urine Nitrite (NEG) NEG Urine Bilirubin (NEG) NEG Urine Urobilinogen (0.1 - 1.0 EU/dl) 0.2 Ur Leukocyte Esterase (NEG) NEG Ur Microscopic EXAM NOT REQUIRED Urine Hemoglobin (NEG) NEG Urine Glucose (N MG/DL) NEG 09/09 0851 Chemistry Sodium (137 - 145 mmol/L) 140 Potassium (3.5 - 5.1 mmol/L) 4.0 Chloride (98 - 107 mmol/L) 102 Carbon Dioxide (22 - 30 mmol/L) 23 Anion Gap (5 - 16) 14 BUN (7 - 17 mg/dL) 9 Creatinine (0.5 - 1.0 mg/dL) 0.5 Estimated GFR (>60 ml/min) > 60 BUN/Creatinine Ratio (7 - 25 %) 18.0 Glucose (65 - 99 mg/dL) 91 Calcium (8.4 - 10.2 mg/dL) 9.7 Magnesium (1.6 - 2.3 mg/dL) 1.8 Total Bilirubin (0.2 - 1.3 mg/dL) 0.9 AST (14 - 36 U/L) 21 ALT (9 - 52 U/L) 25 Alkaline Phosphatase (<127 U/L) 73 Troponin I (< 0.11 ng/ml) < 0.01 Total Protein (6.3 - 8.2 g/dL) 7.3 Albumin (3.5 - 5.0 g/dL) 4.8 Globulin (1.9 - 4.2 gm/dL) 2.5 Albumin/Globulin Ratio (1.1 - 2.2 %) 1.9 TSH &T3 &Free T4 Intrp (0.270 - 4.20 uIU/mL) 2.390 Total Beta HCG (NEGATIVE) NEGATIVE Coagulation D-Dimer High Sensitivty (0 - 243 ng/ml) < 200 Hematology CBC w Diff NO MAN DIFF REQ WBC (4.8 - 10.8 /CUMM) 7.6 RBC (4.20 - 5.40 /CUMM) 4.64 Hgb (12.0 - 16.0 G/DL) 14.6 Hct (37 - 47 %) 42.1 MCV (81.0 - 99.0 FL) 90.8 MCH (27.0 - 31.0 PG) 31.4 H MCHC (33.0 - 37.0 G/DL) 34.5 RDW (11.5 - 14.5 %) 11.9 Plt Count (130 - 400 /CUMM) 214 MPV (7.4 - 10.4 FL) 7.2 L Gran % (42.2 - 75.2 %) 85.6 H Lymphocytes % (20.5 - 51.1 %) 12.0 L Monocytes % (1.7 - 9.3 %) 2.1 Eosinophils % (0 - 5 %) 0.3 Basophils % (0.0 - 2.0 %) 0 Absolute Granulocytes (1.4 - 6.5 /CUMM) 6.5 Absolute Lymphocytes (1.2 - 3.4 /CUMM) 0.9 L Absolute Monocytes (0.10 - 0.60 /CUMM) 0.2 Absolute Eosinophils (0.0 - 0.7 /CUMM) 0 Absolute Basophils (0.0 - 0.2 /CUMM) 0 Diagnostic Data CXR Results 09/09/2017: No acute cardiopulmonary process. Other Results CTA chest 09/09/2017: 1. No evidence of central or segmental pulmonary embolus. 2. No acute findings in lung olivares. VTE: negative Assessment/Plan Assessment/Plan [id number] w/ hx of fibromyalgia and a very strong FH for CAD (maternal grandmother succumbed to a myocardial infarction following the stroke at age 37 years) who presented to the ED w/ c/o nonproductive cough, SOB, & intermittent CP that began on (09/08/2017) evening & kept her up all night. Ms. Oneal's presentation is most c/w an upper respiratory infection with associated shortness of breath and chest discomfort secondary to musculoskeletal pain from coughing. The fact that the discomfort is reproducible to palpation and is exacerbated by her cough, change in position, etc. all support this. Her electrocardiographic changes are nondiagnostic and likely secondary to her sinus tachycardia. Recommendations: * Continue hydration. * Follow-up ECG when volume replete. * Consider echocardiogram to assess left ventricular systolic/diastolic function , wall motion, etc. the findings. * Consider outpatient noninvasive nuclear treadmill stress test, given very strong family history for CAD, once her URI has resolved. * Check high sensitivity CRP. * DVT prophylaxis. Further recommendations will follow, Thank you. Consult Acknowledgment - Thank you for your consult request.
[2017-09-10 22:03] VITALS: BP 110/60
--- NOTE | 2017-09-10 22:12 | PN- Att Addend ---
Attending Addendum Attending Brief Note The patient was seen with house staff and agree with plan of care. Appreciate cardiology input. Chest pain is reproduced by palpation of costal cartilage c/w costochondritis. Rapid flu is now positive and will now place on Tamiflu/droplet precautions. ECHO in am per Cardiology. Continue hydration (tachycardia improved ). ESR is normal.
[2017-09-11 06:58] VITALS: BP 112/76
--- NOTE | 2017-09-11 09:45 | PN- Housestaff ---
Assessment/Plan Assessment: 22-year-old lady with no known cardiac history presents with an 1 day acute onset of constant retrosternal chest pressure which is positional (relieved by leaning forward) . Associated symptom of shortness of breath and nonproductive cough. No radiating features or diaphoresis. shortness of breath is chronic for about 2 months and is exertional dependent. PE ruled out via CT, initial troponin and EKG unremarkable for any ischemic pathology. Chest x-ray, influenza test, and white count unremarkable. Denies Use of illicit drugs. Positive family history for CAD. Impression Chest pressure/ discomfort. Differentials include pericarditis versus pleurisy versus costochondritis. PE has been ruled out. The chest pressure is atypical and with negative troponins and unremarkable EKG ACS is very unlikely. Patient seem to have improve with motrin therapy. Tachycardia. Sinus rhythm. Differentials can include pain, fevers, thyroid abnormalities History of chronic disease: Fibromyalgia Plan Continue telemetry observation for close cardiac monitoring trend troponin unremarkable Ibuprofen 800 mg 3 times a day f/u on echocardiogram TSH level normal Cardiology consult a.m. Tramadol for moderate pain Robitussin codeine for cough DVT prophylaxis; Lovenox CODE STATUS: Full code
--- NOTE | 2017-09-11 10:57 | PN-Observation ---
Observation Note Observation Note _ I have personally examined SONAL BHATIA. Her disposition is uncertain at this time. Before a determination can be made, she requires continued observation for the following reasons [cardiology clearance, given her strong family history of cardiac morbidity and mortality, warrants further evaluation and monitoring]. Assessment/Plan Assessment: 22-year-old lady with no known cardiac history presented with an 1 day acute onset of constant retrosternal chest pressure which is positional (relieved by leaning forward). Associated symptom of shortness of breath and nonproductive cough. No radiating features or diaphoresis. shortness of breath is chronic for about 2 months and is exertional dependent. PE ruled out via CT, initial troponin and EKG unremarkable for any ischemic pathology. Chest x-ray, influenza test, and white count unremarkable. Denies Use of illicit drugs. Positive family history for CAD and due to cardiac reason <50 yrs of age. Impression Chest pressure/discomfort, now better today. Differentials include pericarditis versus pleurisy versus costochondritis. PE has already been ruled out. The chest pressure is atypical and with negative troponins and unremarkable EKG ACS is very unlikely. Patient seem to have improve with motrin therapy. Chest pain is better today. Sinus rhythm. Differentials considered include costochondritis, pleurisy, pericarditis. of note, she has history of Fibromyalgia which can have a role in it. Plan Continue telemetry observation for close cardiac monitoring, pending cardiology clearance for discharge. - Troponin trend unremarkable so far - Ibuprofen 800 mg 3 times a day - f/u on echocardiogram - TSH level normal - Cardiology recs to be followed - Tramadol for moderate pain - Robitussin codeine for cough Update: Discussed with cardiology, and given her negatives tests so far and no events in telemetry, she can be safely discharged to home with a follow up within one week with cardiology service. Diet: Heart healthy diet DVT prophylaxis: Lovenox SQ CODE STATUS: Full code Problem List: 1. Atypical chest pain Consulting Request: Consulting Specialty: Cardiology Consulting Physician: Dr Zachery Maciel Subjective Follow-up For: chest pain, influenza Complaints: no complaints Tele-Events Since Last Visit: sinus rhythm, hr<100. Subjective: Pt followed up and examined by me today. She is being observed for chest pain which has now decreased. She has influenza A and is on precaution. No overnight concerning event reported to me otherwise. Review of Systems Constitutional: Reports: no symptoms. Objective Last 24 Hrs of Vital Signs/I&O Vital Signs Date Time Temp Pulse Resp B/P B/P Pulse O2 O2 Flow FiO2 Mean Ox Delivery Rate 09/11 1430 98.1 90 18 104/56 99 Room Air 09/11 0907 99 Room Air 09/11 0658 98.4 99 16 112/76 98 Room Air Intake & Output 09/11 1600 09/11 0800 09/11 0000 Intake Total 650 700 700 Output Total Balance 650 700 700 Intake, IV 150 600 300 Intake, Oral 500 100 400 Number 0 Bowel Movements Physical Exam General Appearance: Alert, Oriented X3, Cooperative, No Acute Distress Other Physical Findings: Skin No Rashes Skin Temp/Moisture Exam: Warm/Dry HEENT Atraumatic, PERRLA, EOMI Neck No JVD, No thryomegaly, +2 Carotid Pulse wo Bruit Cardiovascular Normal S1, Normal S2, No Murmurs Lungs Clear to Auscultation, comfortable to lie flat today (c.f. yesterday) Abdomen Soft, No Tenderness Neurological Normal Speech,grossly intact Extremities No Cyanosis, No Edema, Normal Pulses Current Medications: Current Medications Sig/Darren Start time Last Medication Dose Route Stop Time Status Admin Acetaminophen 325 MG ONCE ONE 09/11 0630 DC 09/11 PO 09/11 0631 0639 Acetaminophen 975 MG Q8 PRN 09/10 2145 DCD 09/10 PO 2144 Albuterol Sulfate 3 ML BID 09/090 DCD 09/10 INH 2000 Benzocaine/Menthol 1 WILMA Q2P PRN 09/10 2200 DCD 09/10 PO 2251 Celecoxib 200 MG BID 09/11 1230 DCD 09/11 PO 1356 Enoxaparin Sodium 40 MG DAILY 09/10 1000 DCD 09/11 SC 1046 Gabapentin 100 MG TID 09/09 2200 DCD 09/11 PO 1730 Guaifenesin 10 ML .STK-MED ONE 09/11 0622 DC PO 09/11 0623 Guaifenesin 10 ML Q6P PRN 09/10 1615 DCD 09/11 PO 1400 Guaifenesin/Codeine 10 ML .STK-MED ONE 09/11 1359 DC Phosphate PO 09/11 1400 Ibuprofen 800 MG TID 09/09 2309 DC 09/10 PO 1626 Ketorolac 15 MG ONCE ONE 09/11 1100 DC 09/11 Tromethamine IV 09/11 1101 1059 Methocarbamol 750 MG TID PRN 09/09 1999 DCD PO Oseltamivir Phosphate 75 MG BID 09/10 2199 DCD 09/11 PO 09/14 215 1046 Ramelteon 8 MG AT BEDTIME 09/10 2199 DCD 09/10 PO 2251 Sodium Chloride 1,000 ML Q13H 09/10 1815 DC 09/10 IV 09/11 0714 1837 Tramadol HCl 50 MG Q6 PRN 09/09 193 DCD 09/10 PO 1843
[2017-09-11 14:30] VITALS: BP 104/56
--- NOTE | 2017-09-11 14:40 | ECHOCARDIOGRAM REPORT ---
SONAL BHATIA Age: 22 : 1995 Gender: F Exam Date: 09/11/2017 09:46 Exam Location: [address] [facility] Ht (in): 56 Wt (lb): 140 BSA: 1.61 BP: 112 / 76 Ordering Physician: Miryam Osman MD Referring Physician: Zachery Maciel MD Technologist: Jessica Ott [facility] Room Number: 175 Indications: CHEST PAIN Rhythm: Sinus Technical Quality: Fair FINDINGS Left Ventricle Normal size left ventricle. Normal left ventricular wall thickness. Normal left ventricular wall motion. Normal left ventricular ejection fraction visually estimated at >65%. Normal left ventricular diastolic filling pattern for age. Right Ventricle Normal right ventricular size and function. Right Atrium Normal right atrial size. Left Atrium Normal left atrial size. Mitral Valve Structurally normal mitral valve. Trace mitral regurgitation. Aortic Valve Structurally normal trileaflet aortic valve. No aortic valve stenosis or regurgitation. Tricuspid Valve Structurally normal tricuspid valve. Trace tricuspid regurgitation. No evidence of pulmonary hypertension. Right ventricular systolic pressure estimated to be within the normal range at 16 mmHg. Pulmonic Valve Pulmonic valve not well visualized, grossly normal. No pulmonic regurgitation. Pericardium No pericardial effusion. Great Vessels Normal size aortic root. CONCLUSIONS Normal transthoracic echocardiogram. Physiologic valvular regurgitation. Zachery Maciel M.D. (Electronically Signed) Final Date: 11 September 2017 14:39 MEASUREMENTS (Male / Female) Normal Values 2D ECHO LV Diastolic Diameter PLAX 3.9 cm 4.2 - 5.9 / 3.9 - 5.3 cm LV Systolic Diameter PLAX 2.6 cm 2.1 - 4.0 cm LV Fractional Shortening PLAX 33.3 % 25 - 46 % LV Ejection Fraction 2D Teich 62.7 % IVS Diastolic Thickness 0.9 cm LVPW Diastolic Thickness 0.8 cm LV Relative Wall Thickness 0.4 RV Internal Dim ED PLAX 2.8 cm 1.9 - 3.8 cm LVOT Diameter 1.9 cm Aortic Root Diameter 2.2 cm LA Systolic Diameter LX 2.3 cm 3.0 - 4.0 / 2.7 - 3.8 cm LA Volume 16.0 cm 18 - 58 / 22 - 52 cm Ascending Aorta Diameter 2.5 cm DOPPLER AV Peak Velocity 131.0 cm/s AV Peak Gradient 6.9 mmHg AV Mean Velocity 89.8 cm/s AV Mean Gradient 4.0 mmHg AV Velocity Time Integral 24.2 cm LVOT Peak Velocity 94.0 cm/s LVOT Peak Gradient 3.5 mmHg LVOT Mean Velocity 64.7 cm/s LVOT Mean Gradient 2.0 mmHg LVOT Velocity Time Integral 17.1 cm LVOT Stroke Volume 48.5 cm AV Area Cont Eq vti 2.0 cm AV Area Cont Eq pk 2.0 cm MV Peak Velocity 78.3 cm/s MV Peak Gradient 2.5 mmHg MV Mean Velocity 50.9 cm/s MV Mean Gradient 1.0 mmHg Mitral E Point Velocity 72.1 cm/s Mitral A Point Velocity 52.3 cm/s Mitral E to A Ratio 1.4 MV PHT Velocity 84.5 cm/s MV Deceleration [place] 299.0 cm/s MV Pressure Half Time 84.8 ms MV Area PHT 2.6 cm MV Deceleration Time 222.0 ms TR Peak Velocity 167.0 cm/s TR Peak Gradient 11.2 mmHg Right Atrial Pressure 5.0 mmHg Pulmonary Artery Systolic Pressu 16.2 mmHg Right Ventricular Systolic Press 16.2 mmHg PV Peak Velocity 103.0 cm/s PV Peak Gradient 4.2 mmHg PV Mean Velocity 73.8 cm/s PV Mean Gradient 2.0 mmHg PV Velocity Time Integral 21.4 cm LV E' Lateral Velocity 24.3 cm/s Mitral E to LV E' Lateral Ratio 3.0 LV E' Septal Velocity 15.2 cm/s Mitral E to LV E' Septal Ratio 4.7
[2017-09-11] MEDS ORDERED: CELEBREX100 M1 PO ×2 (17:02→17:20)
[2017-09-11] MEDS ORDERED: PROAIR HFA8.5 GM INH ×3 (17:02→17:20)
[2017-09-11] MEDS ORDERED: TAMIFLU75 M1 PO ×3 (17:02→17:41)
[2017-09-11] MEDS ORDERED: CHLORASEPTIC S1 EACH PO ×2 (17:02→17:20)
[2017-09-11] MEDS ORDERED: GUAIFENESI100 MG/5 M PO ×2 (17:02→17:20)
[2017-09-11] MEDS ORDERED: SPACE CHAMBER1 EACH INH ×3 (17:02→17:20)
--- NOTE | 2017-09-11 17:08 | Patient Discharge Instructions ---
Discharge Instructions General Discharge Information You were seen/treated for: Influenza Atypical chest pain Watch for these problems: Severe chest pain, shortness of breathing, palpitation, dizziness, heart racing, cough, sputum, or worsening of any other symptoms Special Instructions: Please follow with your PCP within one because discharge. Please follow with Dr. Maciel, prior authorization nurse for an outpatient treadmill stress test. Diet Continue normal diet: Yes Activity Full Activity/No Limits: No Activity Self Limited: Yes Acute Coronary Syndrome Inclusion Criteria At DC or during hospital stay patient has or had the following: ACS DIAGNOSIS No Discharge Core Measures Meds if any: Prescribed or Continued at Discharge Meds if any: NOT Prescribed or Continued at Discharge Congestive Heart Failure Inclusion Criteria At DC or during hospital stay patient has or had the following: CHF DIAGNOSIS No Discharge Core Measures Meds if any: Prescribed or Continued at Discharge Meds if any: NOT Prescribed or Continued at Discharge Cerebrovascular accident Inclusion Criteria At DC or during hospital stay patient has or had the following: CVA/TIA Diagnosis No Discharge Core Measures Meds if any: Prescribed or Continued at Discharge Meds if any: NOT Prescribed or Continued at Discharge Venous thromboembolism Inclusion Criteria VTE Diagnosis No VTE Type NONE VTE Confirmed by (Test) NONE Discharge Core Measures - Per Current guidelines, there needs to be overlap - treatment for the first 5 days of Warfarin therapy. - If discharged on Warfarin prior to 5 days of - overlap therapy, the patient will need to be - assessed for post discharge needs including - *Post discharge parental anticoagulation - *Warfarin and/or parental anticoagulation education - *Follow up date to check INR post discharge At least 5 days overlap therapy as Inpatient No Meds if any: Prescribed or Continued at Discharge Note: Overlap Therapy is Warfarin and Anticoagulant Meds if any: NOT Prescribed or Continued at Discharge
== END 2017-09-11 18:00 ==
LOC: ERH 08:09 → ERHI 17:42 → 1NO 17:42 → ENRESERV 18:01 → ENTRNSPT 18:37 → ERHI 18:41 → EDTRNSPTSTS 18:48 → EDTRNSPT 18:48 → 1NO 19:00 → CMPTRNSPT 19:15 → 1NO 09-10 12:23
PROVIDERS: Physician Assistant Medical
DX: R00.0 Tachycardia, unspecified (principal); M94.0 Chondrocostal junction syndrome [Tietze]; J09.X2 Influenza due to identified novel influenza A virus with other respiratory manifestations; M79.7 Fibromyalgia; G43.909 Migraine, unspecified, not intractable, without status migrainosus; R06.02 Shortness of breath; R05 Cough
CPT/HCPCS: 1263; 6020; 36415; 71046; 80307; 81001; 81003; 82436; 87804; 87804-59; 93005; 93010; 93306; 96361; 96372; 96374; 96375; 96376; G0378; J1650; J1885; J2405

== ENCOUNTER 2017-10-05 08:55 | Emergency (ER) | payer OTHER ==
[~2017-10-05] VITALS: Ht 172.7 cm; Wt 64.4 kg
[~2017-10-05 08:55] MED LIST changes: +CELEBREX100 M1 PO; +CHERATUSSIN AC118 M1 PO; +CHLORASEPTIC S1 EACH PO; +GABAPENTIN100 M2 PO; +GUAIFENESI100 MG/5 M PO; +PROAIR HFA8.5 GM INH; +ROBAXIN-750750 M1 PO; +SPACE CHAMBER1 EACH INH; +TAMIFLU75 M1 PO
--- NOTE | 2017-10-05 09:22 | ED GI/GU/ABDOMINAL COMPLAINT ---
History of Present Illness General Chief Complaint: Female Urogenital Problems Stated Complaint: ?URINARY RETENTION Source: patient, old records, friend Exam Limitations: no limitations Vital Signs & Intake/Output Vital Signs & Intake/Output Vital Signs Date Time Temp Pulse Resp B/P B/P Pulse O2 O2 Flow FiO2 Mean Ox Delivery Rate 10/05 1531 84 16 107/57 10/05 1416 98.1 80 20 107/55 98 10/05 1320 98.0 73 15 105/51 99 Room Air Room Air 10/05 1007 Room Air Room Air 10/05 0903 96.5 112 16 124/74 95 Room Air Allergies Coded Allergies: latex (SWELLING 12/31/16) Uncoded Allergies: metal (hot and itchy 12/31/16) Reconcile Medications Albuterol Sulfate (Proair Hfa) 90 MCG HFA.AER.AD 2 PUF INH Q4-6 PRN PRN SOB/ COUGH . Benzocaine/Menthol (Chloraseptic Sore Throat Lozng) 6 MG-10 MG LOZENGE 1 WILMA PO Q2P PRN Sore Throat . Celecoxib (Celebrex) 100 MG CAPSULE 200 MG PO BID HEADACHE . Codeine Phosphate/Guaifenesi (Cheratussin AC Syrup) 10 MG-100 MG/5 ML LIQUID 10 ML PO Q6H PRN COUGH Gabapentin 100 MG CAPSULE 1 CAP PO TID FIBROMYALGIA (Reported) Guaifenesin 100 MG/5 ML LIQUID 10 ML PO Q6P PRN COUGH . Inhaler, Assist Devices (Space Chamber Plus) 1 EACH SPACER 1 UNIT INH Q4-6 PRN PRN lung health . Methocarbamol (Robaxin-750) 750 MG TABLET 1 TAB PO Q4H PRN MUSCLE RELAXER ( Reported) Oseltamivir Phosphate (Tamiflu) 75 MG CAPSULE 75 MG PO BID COLD SYMPTOMS . Triage Note: 22 Y/O FEMALE C/O NOT BEING ABLE TO VOID SINCE 1800 LAST NIGHT. PT STATES SHE TOOK FIRST DOSE CIPRO TODAY FOR ? UTI. HAS BEEN HAVING LOW BACK PAIN AND "PRESSURE". VOMIT X 1 THIS AM APPEARS UNCOMFORTABLE. STATES "IT FEELS LIKE MY BLADDER IS FULL AND I CANT PEE" TAKEN TO ROOM 7 Triage Nurses Notes Reviewed? yes ? N Is pt currently ? No HPI: 2 days ago patient started with right lower back pain that radiated around to the right lower quadrant. The pain is increased. Patient has noticed urinary frequency and urgency. Patient was prescribed Cipro by her supervisor extruding department yesterday and she took the first dose this morning. Patient states that it feels that she has not urinated since last night. She is complaining of a pressure sensation in her suprapubic and her right adnexal area. The pain is constant. There are no aggravating or mitigating factors. Positive nausea and vomiting this morning. Positive anorexia over the past 2 days. No diarrhea. No hematuria. The pain is 10 out of 10 and is constant. (Jim MORRIS,Zhao Cote) Past History Travel History Traveled to [place] past 21 day No Medical History Any Pertinent Medical History? 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 No (Jim MORRIS,Zhao Cote) Review of Systems Review of Systems Constitutional: Reports: no symptoms. EENTM: Reports: no symptoms. Respiratory: Reports: no symptoms. Cardiovascular: Reports: no symptoms. GI: Reports: see HPI, abdominal pain, nausea, vomiting. Genitourinary: Reports: see HPI, hesitation, pain. Musculoskeletal: Reports: see HPI, back pain. Skin: Reports: no symptoms. Neurological/Psychological: Reports: no symptoms. Hematologic/Endocrine: Reports: no symptoms. Immunologic/Allergic: Reports: no symptoms. All Other Systems: Reviewed and Negative (Jim MORRIS,Zhao Cote) Physical Exam Physical Exam General Appearance: well developed/nourished, alert, awake, anxious, moderate distress Head: atraumatic, normal appearance Eyes: Bilateral: PERRL, EOMI. Ears, Nose, Throat, Mouth: hearing grossly normal, DRY MUCOSA Neck: normal inspection, supple, full range of motion Respiratory: normal breath sounds, chest non-tender, no respiratory distress, lungs clear Cardiovascular: regular rate/rhythm, normal peripheral pulses Gastrointestinal: normal bowel sounds, soft, tenderness (RLQ AND RIGHT ADNEXA), NO GUARDING OR REBOUND Back: normal inspection, normal range of motion, NO CVA TENDERNESS Extremities: normal range of motion Neurologic/Psych: no motor/sensory deficits, awake, alert, oriented x 3, normal mood/affect Skin: intact, normal color, warm/dry Core Measures ACS in differential dx? No Sepsis Present: No Sepsis Focused Exam Completed? No (Jim MORRIS,Zhao Cote) Progress Differential Diagnosis: appendicitis, intrauterine , kidney stone, ovarian cyst, ovarian torsion, PID/cervicitis, threatened AB, UTI/pyelo Plan of Care: Orders Procedure Date/time Status Straight Cath 10/05 914 Active URINALYSIS 10/05 914 Complete HUMAN BETA HCG SCREEN 10/05 914 Complete COMPREHENSIVE METABOLIC PANEL 10/05 914 Complete CBC WITHOUT DIFFERENTIAL 10/05 914 Complete Laboratory Tests 10/05/17 1120: Urine Color STRAW, Urine Clarity CLEAR, Urine pH 6.0, Ur Specific Wayne <= 1.005, Urine Protein NEG, Urine Ketones NEG, Urine Nitrite NEG, Urine Bilirubin NEG, Urine Urobilinogen 0.2, Ur Leukocyte Esterase NEG, Ur Microscopic EXAM NOT REQUIRED, Urine Hemoglobin NEG, Urine Glucose NEG 10/05/17 0935: Anion Gap 13, Estimated GFR > 60, BUN/Creatinine Ratio 14.0, Glucose 93, Calcium 9.7, Total Bilirubin 0.7, AST 15, ALT 16, Alkaline Phosphatase 65, Total Protein 7.1, Albumin 4.5, Globulin 2.6, Albumin/Globulin Ratio 1.7, Total Beta HCG NEGATIVE, CBC w Diff NO MAN DIFF REQ, RBC 4.48, MCV 91.2, MCH 31.7 H, MCHC 34.8 , RDW 12.2, MPV 7.1 L, Gran % 68.2, Lymphocytes % 23.1, Monocytes % 8.1, Eosinophils % 0.4, Basophils % 0.2, Absolute Granulocytes 4.2, Absolute Lymphocytes 1.4, Absolute Monocytes 0.5, Absolute Eosinophils 0, Absolute Basophils 0 3:[address] SCAN ABDOMEN (Sarai MORRIS,Jazmine) Diagnostic Imaging: Viewed by Me: Ultrasound. Discussed w/RAD: Ultrasound. Radiology Impression: PATIENT: SONAL BHATIA PRESENT AGE: 22 PATIENT ACCOUNT NO: [id number] : 96 LOCATION: [facility] ORDERING PHYSICIAN: Zhao Fernandez MD SERVICE DATE: 10/05/17 EXAM TYPE: US - US-TRANSVAGINAL EXAMINATION: ULTRASOUND OF THE PELVIS CLINICAL INFORMATION: History of right ovarian cyst, presenting with right adnexal pain evaluate for ovarian torsion.. COMPARISON: Pelvic ultrasound dated 07/17/2015.. TECHNIQUE: Transabdominal and transvaginal pelvic ultrasound. A transvaginal study was performed in addition to the transabdominal study for better evaluation of the uterus and ovaries. FINDINGS: The uterus is normal in size and appearance, measuring 6.4 x 3.3 x 4.4 cm longitudinally, anteroposteriorly and transversely. The endometrial stripe thickness is normal, measuring 0.9 cm in thickness. No focal myometrial mass is seen. The cervical length is normal measuring 2.3 cm. The right ovary measures 3.9 x 3.0 x 3.6 cm, 22.0 mL and is normal in echogenicity and morphology. The right ovary contains a dominant follicle which measures 2.4 x 1.5 x 1.8 cm, with no complex features. Venous and arterial Doppler flow is demonstrated within the right ovary, with no evidence of ovarian torsion. A small amount of free fluid is present in the right adnexal region. The left ovary was not visualized.. No adnexal mass is visualized. IMPRESSION: 1. Arterial and venous Doppler flow is demonstrated within the right ovary, the right ovary is normal in size with no evidence of ovarian torsion noted at this time. 2. Incidental note is made of a cystic structure in the right ovary likely representing a dominant follicle with no complex features. DICTATED BY: Sue Isabel MD DATE/TIME DICTATED:10/05/171149 OFFICE WORKER:CAITIE DATE/TIME TRANSCRIBED:10/05/171149 CONFIDENTIAL, DO NOT COPY WITHOUT APPROPRIATE AUTHORIZATION. <Electronically signed in Other Vendor System> SIGNED BY: Sue Isabel MD 10/05/17 1202 Initial ED EKG: none Hand-Off Endorsed To: Jazmine Moon MD Endorsed Time: 1500 Pending: CT Comments: POST VOID STRAIGHT CATH: NO URINE (Jim MORRIS,Zhao Cote) Diagnostic Imaging: Viewed by Me: CT Scan. Discussed w/RAD: CT Scan. Radiology Impression: PATIENT: SONAL BHATIA PRESENT AGE: 22 PATIENT ACCOUNT NO: [id number] : 96 LOCATION: [facility] ORDERING PHYSICIAN: Zhao Fernandez MD SERVICE DATE: 10/05/17 EXAM TYPE: CAT - CT ABD & PELVIS W ORAL & IV CO EXAMINATION: CT ABDOMEN AND PELVIS WITH CONTRAST CLINICAL INFORMATION: Right lower quadrant pain. COMPARISON: CT abdomen and pelvis dated 06/28/2017 TECHNIQUE: Multidetector volumetric imaging was performed of the abdomen and pelvis following IV administration of 95 mL of Omnipaque 300 intravenous contrast. Sagittal and coronal reformatted images were obtained on the technologist's workstation. DLP: 290.49 mGy-cm FINDINGS: LUNG BASES: The visualized lung bases are unremarkable. LIVER, GALLBLADDER, AND BILIARY TREE: The liver is normal in size, shape, and attenuation. No focal hepatic lesion or biliary ductal dilatation is present. The gallbladder is unremarkable with no evidence of radiopaque gallstones, gallbladder wall thickening, or obvious pericholecystic inflammatory changes. PANCREAS: Unremarkable. SPLEEN: Upper limits of normal. ADRENAL GLANDS: Unremarkable. KIDNEYS AND URETERS: Fullness of the left collecting system and left-sided extrarenal pelvis. No obstructing abnormality. Unremarkable right kidney. Symmetric bilateral renal function. BLADDER: Unremarkable. GASTROINTESTINAL TRACT: The small and large bowel are unremarkable. The appendix is unremarkable. There is small amount of free fluid noted in the right lower quadrant. ABDOMINAL WALL: No significant hernia is appreciated. LYMPH NODES: Normal. VASCULAR: Unremarkable. PELVIC VISCERA: Anteverted uterus. Physiologic changes bilateral ovaries. Small right ovarian/parovarian cyst measuring approximately 1.2 cm ( series 2 image 70) small amount of free fluid noted in the pelvis. Small amount of free fluid also noted in the right lower quadrant region. OSSEOUS STRUCTURES: No acute osseous abnormality. IMPRESSION: 1. No evidence of acute appendicitis. 2. Small 1.2 cm structure noted in the right ovarian/parovarian region. 3. Small amount of free fluid noted in the right lower quadrant. It is slightly greater than generally seen with physiologic fluid in this age group. Findings may be partly attributed to recent ovarian cyst rupture. Monitoring with follow-up ultrasound recommended. DICTATED BY: Nicole Salguero MD DATE/TIME DICTATED:1457 OFFICE WORKER:CAITIE DATE/TIME TRANSCRIBED:10/05/171457 CONFIDENTIAL, DO NOT COPY WITHOUT APPROPRIATE AUTHORIZATION. <Electronically signed in Other Vendor System> SIGNED BY: Nicole Salguero MD 10/05/17 1516 (Jazmine Moon MD) Departure Departure Condition: Stable (Jim MORRIS,Zhao Cote) Departure Time of Disposition: 1532 Disposition: HOME OR SELF CARE Clinical Impression Primary Impression: Ovarian cyst rupture Referrals: Lili MORRIS,Carmen (PCP/Family) Yariel Suggs MD Additional Instructions: FOLLOW UP WITH YOUR OBGYN DOCTOR IN THE OFFICE TAKE THE ALLEVE DIRECTED RETURN TO THE ER FOR ANY CHANGING OR WORSENING SYMPTOMS Departure Forms: Customer Survey General Discharge Information (Jazmine Moon MD) Additional Instructions: FOLLOW UP WITH YOUR OBGYN DOCTOR IN THE OFFICE RETURN TO THE ER FOR ANY CHANGING OR WORSENING SYMPTOMS (Jazmine Moon MD)
[2017-10-05 09:44] LABS: ABSOLUTE BASOPHIL COUNT 0 /CUMM (0.0-0.2); ABSOLUTE EOSINOPHIL COUNT 0 /CUMM (0.0-0.7); ABSOLUTE GRANULOCYTE CT 4.2 /CUMM (1.4-6.5); ABSOLUTE LYMPH COUNT 1.4 /CUMM (1.2-3.4); ABSOLUTE MONOCYTE COUNT 0.5 /CUMM (0.10-0.60); BASOPHIL % 0.2 % (0.0-2.0); EOSINOPHIL % 0.4 % (0-5); GRANULOCYTE % 68.2 % (42.2-75.2); HEMATOCRIT 40.8 % (37-47); MEAN CORPUSCULAR HGB 31.7 PG (27.0-31.0); MEAN CORPUSCULAR HGB CONC 34.8 G/DL (33.0-37.0); MEAN CORPUSCULAR VOLUME 91.2 FL (81.0-99.0); MEAN PLATELET VOLUME 7.1 FL (7.4-10.4); PLATELET COUNT 240 /CUMM (130-400); RBC DISTRIBUTION WIDTH 12.2 % (11.5-14.5); RED BLOOD CELL CT 4.48 /CUMM (4.20-5.40); WHITE BLOOD CELL COUNT 6.2 /CUMM (4.8-10.8)
--- NOTE | 2017-10-05 12:02 | ULTRASOUND REPORT ---
EXAMINATION: ULTRASOUND OF THE PELVIS CLINICAL INFORMATION: History of right ovarian cyst, presenting with right adnexal pain evaluate for ovarian torsion.. COMPARISON: Pelvic ultrasound dated 07/17/2015.. TECHNIQUE: Transabdominal and transvaginal pelvic ultrasound. A transvaginal study was performed in addition to the transabdominal study for better evaluation of the uterus and ovaries. FINDINGS: The uterus is normal in size and appearance, measuring 6.4 x 3.3 x 4.4 cm longitudinally, anteroposteriorly and transversely. The endometrial stripe thickness is normal, measuring 0.9 cm in thickness. No focal myometrial mass is seen. The cervical length is normal measuring 2.3 cm. The right ovary measures 3.9 x 3.0 x 3.6 cm, 22.0 mL and is normal in echogenicity and morphology. The right ovary contains a dominant follicle which measures 2.4 x 1.5 x 1.8 cm, with no complex features. Venous and arterial Doppler flow is demonstrated within the right ovary, with no evidence of ovarian torsion. A small amount of free fluid is present in the right adnexal region. The left ovary was not visualized.. No adnexal mass is visualized. IMPRESSION: 1. Arterial and venous Doppler flow is demonstrated within the right ovary, the right ovary is normal in size with no evidence of ovarian torsion noted at this time. 2. Incidental note is made of a cystic structure in the right ovary likely representing a dominant follicle with no complex features.
--- NOTE | 2017-10-05 15:16 | CT SCAN REPORT ---
EXAMINATION: CT ABDOMEN AND PELVIS WITH CONTRAST CLINICAL INFORMATION: Right lower quadrant pain. COMPARISON: CT abdomen and pelvis dated 06/28/2017 TECHNIQUE: Multidetector volumetric imaging was performed of the abdomen and pelvis following IV administration of 95 mL of Omnipaque 300 intravenous contrast. Sagittal and coronal reformatted images were obtained on the technologist's workstation. DLP: 290.49 mGy-cm FINDINGS: LUNG BASES: The visualized lung bases are unremarkable. LIVER, GALLBLADDER, AND BILIARY TREE: The liver is normal in size, shape, and attenuation. No focal hepatic lesion or biliary ductal dilatation is present. The gallbladder is unremarkable with no evidence of radiopaque gallstones, gallbladder wall thickening, or obvious pericholecystic inflammatory changes. PANCREAS: Unremarkable. SPLEEN: Upper limits of normal. ADRENAL GLANDS: Unremarkable. KIDNEYS AND URETERS: Fullness of the left collecting system and left-sided extrarenal pelvis. No obstructing abnormality. Unremarkable right kidney. Symmetric bilateral renal function. BLADDER: Unremarkable. GASTROINTESTINAL TRACT: The small and large bowel are unremarkable. The appendix is unremarkable. There is small amount of free fluid noted in the right lower quadrant. ABDOMINAL WALL: No significant hernia is appreciated. LYMPH NODES: Normal. VASCULAR: Unremarkable. PELVIC VISCERA: Anteverted uterus. Physiologic changes bilateral ovaries. Small right ovarian/parovarian cyst measuring approximately 1.2 cm (series 2 image 70) small amount of free fluid noted in the pelvis. Small amount of free fluid also noted in the right lower quadrant region. OSSEOUS STRUCTURES: No acute osseous abnormality. IMPRESSION: 1. No evidence of acute appendicitis. 2. Small 1.2 cm structure noted in the right ovarian/parovarian region. 3. Small amount of free fluid noted in the right lower quadrant. It is slightly greater than generally seen with physiologic fluid in this age group. Findings may be partly attributed to recent ovarian cyst rupture. Monitoring with follow-up ultrasound recommended.
[2017-10-05 15:31] VITALS: BP 107/57
== END 2017-10-05 15:38 ==
LOC: ERH 08:55
PROVIDERS: Emergency Medicine
DX: N83.201 Unspecified ovarian cyst, right side (principal)
CPT/HCPCS: 74177; 81003; 96374; 96375; J1885